=== PATIENT | female | born 1970 | race Caucasian/White ===

== ENCOUNTER 2020-10-10 14:16 | Outpatient (CLI) | payer BC, SELFPAY ==
--- NOTE | ~2020-10-10 | US_ITS ---
EXAMINATION: US venous doppler LE DATE: 10/10/2020 14:41 INDICATION: Right lower limb pain TECHNIQUE: Grayscale ultrasound images without and with compression and Doppler ultrasound images of the right lower extremity veins were obtained. COMPARISON: None. FINDINGS: The visualized portions of right common femoral vein, profunda (deep) femoral vein, femoral vein, pop liteal vein, peroneal trunk, posterior tibial veins, peroneal veins, gastrocnemius vein and greater s aphenous vein outflow are patent. IMPRESSION: 1. No deep venous thrombosis in the right lower limb. Reviewed, dictated and finalized at location A. [employer]ER
== END 2020-10-10 14:17 | disposition home or self-care (01) ==
PROVIDERS: Visit Provider Obstetrics & Gynecology
DX: M79.661 Pain in right lower leg (principal)
CPT/HCPCS: 93971

== ENCOUNTER 2020-12-07 14:24 | Outpatient (CLI) | payer BC, SELFPAY ==
--- NOTE | ~2020-12-07 | MM_ITS ---
EXAMINATION: MM screening [facility] BI w [place] HISTORY: Screening mammogram TECHNIQUE: Craniocaudal and mediolateral oblique 3-D tomosynthesis images were obtained and synthetic 2-D images were generated. CAD analysis was submitted and interpreted. COMPARISON: 12/26/2015, 07/07/2012, 04/04/2011 BREAST PARENCHYMAL COMPOSITION: The breasts are heterogeneously dense, which may obscure small masses . FINDINGS: There is no evidence of suspicious mass, calcification, or architectural distortion to sugg est malignancy in either breast. There has been no suspicious interval change. IMPRESSION: 1. No mammographic evidence of malignancy. 2. Recommend routine screening mammography in one year. BI-RADS Category 1: Negative Reviewed, dictated and finalized at location A.
== END 2020-12-07 14:25 | disposition home or self-care (01) ==
LOC: ANHIMG 14:28
PROVIDERS: PCP Obstetrics & Gynecology; Visit Provider Obstetrics & Gynecology
DX: Z12.31 Encounter for screening mammogram for malignant neoplasm of breast (principal)
CPT/HCPCS: 77063; 77067

== ENCOUNTER 2021-10-25 01:22 | Day surgery (SDC) | payer BC, SELFPAY ==
[2021-10-16 15:49] VITALS: BMI 36.9
[2021-10-25] MEDS: LACTATED RINGERS 1,000 ML 150 ML IV CONT (08:53)
--- NOTE | 2021-10-25 09:34 | PM.HPGS ---
History of Present Illness History of Present Illness Consent: Risks, benefits, and alternatives have been discussed and questions answered. Patient agrees to proceed with procedure. Chief complaint: neoplasm screening Narrative: Matilda Byers is a 51 year old female here for first screening colonoscopy Review of Systems Constitutional: Constitutional: Denies headache(s) and Denies weakness Eyes: Eyes: Denies blurry vision ENT: Reports Normal hearing present, Denies headache(s) and Denies neck pain Cardiovascular: Cardiovascular: Denies chest pain and Denies dyspnea Respiratory: Respiratory: Denies dyspnea Gastrointestinal: Gastrointestinal: Reports no additional gastrointestinal complaints Genitourinary: Genitourinary: Denies dysuria Musculoskeletal: Musculoskeletal: Denies neck pain Integumentary/Breasts: Skin/Breast: Denies dry skin Neurologic: Reports Normal hearing present, Denies headache(s) and Denies weakness Psychiatric: Psychiatric: Denies anxiety Endocrine: Endocrine: Denies change in body appearance Hematologic/Lymphatic: Hematologic/Lymphatic: Denies easy bleeding Allergic/Immunologic: Allergic/Immunologic: Denies urticaria PMFSH Past Medical History Medical History (Updated 10/25/21 @ 09:34 by Steven Law MD) Colon cancer screening Social History Social History Smoking packs per day: 0.25 Smoking cigarettes per day: 5.0 Smoking status: Former smoker Alcohol intake: current Drinks per week: 12 Substance use type: does not use Living arrangements: with family Spiritual care concerns: No Meds Home Medications and Allergies Home Medications Medication Instructions Recorded Confirmed Type No Home Medications 10/16/21 10/16/21 History Allergies Allergy/AdvReac Type Severity Reaction Status Date / Time No Known Allergies Allergy Mild Verified 10/25/21 08:57 Exam Const: General: comfortable and no acute distress HENMT: General nose exam: Normal nares present Eyes: General: appearance normal, both eyes and all related structures Neck: Neck: no JVD Resp: Auscultation: clear to auscultation bilaterally Cardio: Rate: regular rate Rhythm: regular rhythm GI: Inspection: non-distended GI Palp: Yes Soft to palpation Skin: General skin exam: normal color Neuro: General: gait normal Speech: normal speech Extrem: General: normal to inspection Psych: Mental Status: mental status grossly normal Assessment and Plan Assessment and plan (1) Colon cancer screening: Code(s): Z12.11 - Encounter for screening for malignant neoplasm of colon Status: Acute Assessment and Plan: colonoscopy
--- NOTE | 2021-10-25 09:51 | P.PNAN_ITS ---
Anes - Initial Pre Proc Eval Procedure: Operation Date: 10/25/21 09:45 Proposed Procedures p Screening Colonoscopy - Steven Law MD Date/Time: 10/25/21 09:51 Surgeon: Steven Law MD Pre Op Diagnosis: neoplasm screening Patient Data Age: 51 Gender: F Height: 1.75 m Weight: 115 kg Allergies Allergy/AdvReac Type Severity Reaction Status Date / Time No Known Allergies Allergy Mild Verified 10/25/21 08:57 Home Medications Medication Instructions Recorded Confirmed Type No Home Medications 10/16/21 10/16/21 History Patient hx anesthesia problems: none Family hx anesthesia problems: none Results Review: All pre-operative results and documents have been reviewed as part of the pre-operative evaluation. [facility] Past Medical History Medical History (Updated 10/25/21 @ 09:34 by Steven Law MD) Colon cancer screening Social History Social History Smoking packs per day: 0.25 Smoking cigarettes per day: 5.0 Smoking status: Former smoker Alcohol intake: current Drinks per week: 12 Substance use type: does not use Living arrangements: with family Spiritual care concerns: No Anes - Eval Final PreProcedure Day of Procedure 10/25/21 09:51 Patient weight: obese Heart: regular rate and rhythm Lungs: clear to auscultation Airway: Mallampati scale Neurological: alert and oriented Last oral intake: >/= 8 hours ASA classification: II Emergent: no Anesthetic plan: proceed Anesthesia type and monitoring: general GIVS and standard monitoring Results Review: All pre-operative results and documents have been reviewed as part of the pre-operative evaluation. Informed Consent: The patient's anesthetic plan and its attendant risks and benefits were discussed with the patient/family/POA. Questions were solicited and answers provided to the satisfaction of the patient/family/POA.
[2021-10-25 09:55] VITALS: BP 118/80; PULSE 83; RESP 16; O2SAT 100
[2021-10-25 10:05] VITALS: BP 119/78; PULSE 78; RESP 14; O2SAT 100
[2021-10-25 10:15] VITALS: BP 124/85; PULSE 77; RESP 15; O2SAT 100
== END 2021-10-25 10:30 | disposition home or self-care (01) ==
PROVIDERS: Visit Provider Internal Medicine Gastroenterology
PROC: 0DJD8ZZ Inspection of Lower Intestinal Tract, Via Natural or Artificial Opening Endoscopic (ICD-10-PCS; CPT 45378; principal; 2021-10-25 09:45)
DX: Z12.11 Encounter for screening for malignant neoplasm of colon (principal); K57.30 Diverticulosis of large intestine without perforation or abscess without bleeding; Z87.891 Personal history of nicotine dependence
CPT/HCPCS: 45378; J2704; J7120

== ENCOUNTER 2021-12-11 08:29 | Outpatient (CLI) | payer BC, SELFPAY ==
--- NOTE | ~2021-12-11 | MM_ITS ---
EXAMINATION: MM screening [facility] BI w [place] HISTORY: Screening TECHNIQUE: Craniocaudal and mediolateral oblique 3-D tomosynthesis images were obtained and synthetic 2-D images were generated. CAD analysis was submitted and interpreted. COMPARISON: Comparison to multiple prior studies sequentially, with oldest reviewed study dated 06/18. BREAST PARENCHYMAL COMPOSITION: The breasts are heterogeneously dense, which may obscure small masses . FINDINGS: There is no evidence of suspicious mass, calcification, or architectural distortion to sugg est malignancy in either breast. There has been no suspicious interval change. IMPRESSION: 1. No mammographic evidence of malignancy. 2. Recommend routine screening mammography in one year. BI-RADS Category 1: Negative Reviewed, dictated and finalized at location A.
== END 2021-12-11 08:30 | disposition home or self-care (01) ==
LOC: ANHIMG 08:30
PROVIDERS: Visit Provider Obstetrics & Gynecology
DX: Z12.31 Encounter for screening mammogram for malignant neoplasm of breast (principal)
CPT/HCPCS: 77063; 77067

== ENCOUNTER 2022-02-10 12:56 | Emergency (ER) | payer BC, SELFPAY ==
[2022-02-10 13:06] VITALS: BP 139/78; PULSE 88; RESP 16; TEMP 36.4; O2SAT 100
--- NOTE | 2022-02-10 13:33 | ED.WOUNDLAC ---
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 She has cleaned the area and dressed it prior to arrival. She currently rates her pain 3/10. She is up-to-date on her tetanus vaccine. She does report some slight tingling to the tip of the finger, but denies numbness. She has not tried any [id number] medication for symptoms prior to arrival. Related Data Allergies Allergy/AdvReac Type Severity Reaction Status Date / Time No Known Allergies Allergy Mild Verified 02/10/22 13:25 Review of Systems Review of Systems: CONSTITUTIONAL: Denies body aches, fever, chills, or sweats. EYES: Denies visual changes, redness, or discharge. ENT: Denies rhinorrhea, congestion, sore throat, or otalgia. CARDIOVASCULAR: Denies chest pain, palpitations, or edema. RESPIRATORY: Denies cough or dyspnea. GASTROINTESTINAL: Denies abdominal pain, nausea, vomiting, or diarrhea. GENITOURINARY: Denies dysuria or hematuria. SKIN: Denies rash, itching. + Laceration to left second finger MUSCULOSKELETAL: Denies back pain, joint pain, or myalgia. NEUROLOGIC: Denies headache, numbness, tingling, or weakness. PSYCH: Denies depression or anxiety. [facility] Past Medical History Medical History (Reviewed 02/10/22 @ 13:36 by Sandy Valenzuela, [facility] [place], ) Colon cancer screening Social History Social History (Reviewed 02/10/22 @ 13:36 by Sandy Valenzuela, [facility] [place], ) Smoking packs per day: 0.25 Smoking cigarettes per day: 5.0 Smoking status: Former smoker Alcohol intake: current Drinks per week: 12 Substance use type: does not use Spiritual care concerns: No Comments At time of signature, I have reviewed and agree with nursing past medical, surgical, social and family history unless otherwise noted. Please see nursing chart for further information. There is no relevant family history pertinent to the presenting complaint Exam Narrative: GENERAL: Well-appearing, well-nourished, and in no acute distress. HEAD: Normocephalic, atraumatic. EYES: EOMI. No redness or drainage. Conjunctivae normal. ENT: Mucous membranes pink and moist. NECK: Normal AROM. CHEST: No respiratory distress. EXTREMITIES: Normal range of motion. No edema. SKIN: Warm, dry, no rash. Capillary refill normal. Normal skin turgor. 2 cm x 4 mm gaping laceration to the pad of the left second finger. Mild edema noted. Scant erythema surrounding the laceration. Distal sensation is intact. Full AROM of the finger. Some tenderness surrounding the laceration, but no proximal tenderness noted. No bony tenderness noted. Capillary refill normal. NEURO: No focal deficits. Alert and oriented x3. Gait steady. PSYCH: Normal affect. No signs of depression or anxiety. Course Course Emergency Course: Will place patient on antibiotics for anaerobic anaerobic coverage and instruct her to follow-up with hand specialist. Level of Care: Express Care Visit Vital Signs Vital signs: Vital Signs Temperature 97.5 F L 02/10/22 13:06 Pulse Rate 88 02/10/22 13:06 Respiratory Rate 16 02/10/22 13:06 Blood Pressure 139/78 02/10/22 13:06 Pulse Oximetry 100 02/10/22 13:06 Oxygen Delivery Room Air 02/10/22 13:06 Temperature 97.5 F L 02/10/22 13:06 Pulse Rate 88 02/10/22 13:06 Respiratory Rate 16 02/10/22 13:06 Blood Pressure 139/78 02/10/22 13:06 Pulse Oximetry 100 02/10/22 13:06 Oxygen Delivery Room Air 02/10/22 13:06 Reviewed. Pt has been instructed to follow up with her PCP regarding her elevated blood pressure today. MDM - Wound/Laceration Differential Diagnosis Differen
== END 2022-02-10 13:48 | disposition home or self-care (01) ==
PROVIDERS: Emergency Provider Nurse Practitioner
DX: S61.211A Laceration without foreign body of left index finger without damage to nail, initial encounter (principal); X58.XXXA Exposure to other specified factors, initial encounter; Z87.891 Personal history of nicotine dependence
CPT/HCPCS: 99213; G0463

== ENCOUNTER 2022-07-01 12:08 | Emergency (ER) | payer BC, SELFPAY ==
--- NOTE | ~2022-07-01 | US_ITS ---
EXAMINATION: US venous doppler [facility] DATE: 07/01/2022 13:00 INDICATION: Left lower limb pain. TECHNIQUE: Grayscale ultrasound images without and with compression and Doppler ultrasound images of the left lower extremity veins were obtained. COMPARISON: None. FINDINGS: The visualized portions of left common femoral vein, profunda (deep) femoral vein, femoral vein, popl iteal vein, peroneal veins, posterior tibial veins, and greater saphenous vein outflow are patent. IMPRESSION: 1. No deep venous thrombosis. Reviewed, dictated and finalized at location A. RENOVATOR
[2022-07-01 12:22] VITALS: BP 138/109; PULSE 82; RESP 16; TEMP 36.5; O2SAT 98
--- NOTE | 2022-07-01 13:31 | ED.EXTPRO ---
HPI - Extremity Problem General Chief complaint: Extremity Problem,Nontraumatic Stated complaint: L leg pain behind the knee radiating to calf x 2w Time Seen by Provider: 07/01/22 13:01 History of Present Illness HPI Narrative: Patient is a 52-year-old female presenting with left knee pain. Patient states that she has had intermittent pain in her left knee for the last several weeks. States that it is behind her knee and sometimes radiates to the top of her calf. States that she twisted her knee over the summer and this pain is in a similar distribution as that time. States that she mentioned her symptoms to some friends and they told her to come in to make sure it was not a blood clot. She denies any erythema or significant swelling. Denies recent trauma. No fevers or chills. Still ambulatory. Denies headaches, chest pain, shortness of breath, abdominal pain, nausea or vomiting, diarrhea. Related Data Allergies Allergy/AdvReac Type Severity Reaction Status Date / Time No Known Allergies Allergy Mild Verified 07/01/22 12:09 Review of Systems Review of Systems: All systems reviewed & are unremarkable except as noted in HPI and below PMFSH Past Medical History Medical History Colon cancer screening Social History Social History Smoking packs per day: 0.25 Smoking cigarettes per day: 5.0 Smoking status: Former smoker Alcohol intake: current Drinks per week: 12 Substance use type: does not use Spiritual care concerns: No Exam Narrative: GENERAL: Well-appearing, well-nourished, and in no acute distress. HEAD: Normocephalic, atraumatic. EYES: PERRLA and EOMI. ENT: Nares clear, no rhinorrhea or epistaxis. Mucous membranes moist. NECK: Supple. CHEST: Clear to auscultation. No respiratory distress. HEART: Regular rate and rhythm. No murmur heard. Normal peripheral pulses. ABDOMEN: Soft, nontender, nondistended, normal active bowel sounds. EXTREMITIES: Normal range of motion. No edema. No erythema noted to either lower extremity, left knee without swelling or decreased ROM, distal pulses 2+ SKIN: Warm, dry, no rash. NEURO: No focal deficits. Alert and oriented x3. PSYCH: Normal mood and affect. Course Vital Signs Vital signs: Vital Signs Temperature 97.7 F 07/01/22 12:22 Pulse Rate 82 07/01/22 12:22 Respiratory Rate 16 07/01/22 12:22 Blood Pressure 138/109 H 07/01/22 12:22 Pulse Oximetry 98 07/01/22 12:22 Oxygen Delivery Room Air 07/01/22 12:22 Temperature 97.7 F 07/01/22 12:22 Pulse Rate 82 07/01/22 12:22 Respiratory Rate 16 07/01/22 12:22 Blood Pressure 138/109 H 07/01/22 12:22 Pulse Oximetry 98 07/01/22 12:22 Oxygen Delivery Room Air 07/01/22 12:22 MDM - Extremity (Nontraumatic) MDM Narrative Medical decision making narrative: Patient is a 52-year-old female presenting with left knee pain for several weeks. Patient is hypertensive, otherwise vitals are within normal limits. Exam is remarkable for the above. Doppler of her lower extremity was obtained which shows no evidence of DVT. Do not feel further imaging is warranted at this time. She denies any recent trauma. Discussed appropriate supportive care and primary care follow-up. Appropriate return precautions given. Patient voiced understanding and is agreeable with plan. Discharged in stable condition. Critical Care Time Critical Care Time Critical Care Time: No Discharge Plan Discharge Clinical Impression: Left leg pain Patient Disposition: Home, Self-Care Condition: Stable Instructions: Antibiotic Form, Leg Sprain (ED) Additional Instructions: Please alternate between Tylenol and ibuprofen for pain control. Please keep the leg elevated and apply ice as needed. Please follow-up closely with primary care. If you develop worsening swelling or pain or redness, y
== END 2022-07-01 14:20 | disposition home or self-care (01) ==
PROVIDERS: Emergency Provider Emergency Medicine
DX: M79.662 Pain in left lower leg (principal)
CPT/HCPCS: 93971; 99284

== ENCOUNTER → 2022-10-03 13:50 | Outpatient (CLI) | payer BC, SELFPAY ==
--- NOTE | ~2022-10-03 | XR_ITS ---
XR knee LT 2V DATE: 10/03/2022 14:03 INDICATION: Posterior medial left knee pain for 6+ months. No injury. TECHNIQUE: Standing AP and lateral views COMPARISON: None FINDINGS: No fracture, dislocation, joint effusion, radiopaque intra-articular loose body or chondroc alcinosis is evident. Joint spaces appear relatively preserved. No periosteal reaction or bone destru ction. IMPRESSION: No significant abnormality Reviewed, dictated and finalized at location A. ERY CHECKER IMPRESSION: No significant abnormality
== END ==
PROVIDERS: PCP Family Medicine; Visit Provider Physician Assistant Medical
DX: M25.562 Pain in left knee (principal)
CPT/HCPCS: 73560

== ENCOUNTER → 2022-11-14 10:36 | Outpatient (CLI) | payer BC, SELFPAY ==
--- NOTE | ~2022-11-14 | MR_ITS ---
MRI of the left knee Clinical history: Medial meniscal tear Technique: Coronal proton density and proton density-weighted images, sagittal proton-density and T2 fat-sat images, and axial proton-density fat-saturated images were acquired. Findings: Anterior and posterior cruciate ligaments are intact. Probable small ganglion cyst of the A CL. Medial collateral ligament and the lateral collateral ligament complex are intact. Popliteus tend on is intact. There is horizontal tear of the posterior horn and body of the medial meniscus. Lateral meniscus is i ntact. Articular cartilage is well preserved throughout the knee, aside from a focal high-grade chondral les ion along lateral patellar facet. Bone marrow signals are unremarkable. Extensor mechanism is intact. Minimal joint effusion present. [id number] Vazquez's cyst present. Impression: Horizontal tear of the posterior horn and body of medial meniscus. Focal high-grade chondral lesion at the lateral patellar facet. Small to moderate Vazquez's cyst. Probable small intraligamentous ganglion cyst of the ACL. Reviewed, dictated and finalized at location . Impression: Horizontal tear of the posterior horn and body of medial meniscus. Focal high-grade chondral lesion at the lateral patellar facet. Small to moderate Vazquez's cyst. Probable small intraligamentous ganglion cyst of the ACL.
== END ==
PROVIDERS: PCP Physician Assistant Medical; Visit Provider Orthopaedic Surgery
DX: S83.242A Other tear of medial meniscus, current injury, left knee, initial encounter (principal); X58.XXXA Exposure to other specified factors, initial encounter; M71.22 Synovial cyst of popliteal space [Baker], left knee
CPT/HCPCS: 73721

== ENCOUNTER 2022-12-10 12:10 | Outpatient (CLI) | payer BC, SELFPAY ==
--- NOTE | 2022-12-10 12:22 | ECG_ITS ---
Measurements Intervals [place] Rate: 78 P: 39 RI: 166 QRS: -17 QRSD: 76 T: -10 QT: 362 QTc: 413 Interpretive Statements SINUS RHYTHM LOW QRS VOLTAGE IN PRECORDIAL LEADS [QRS DEFLECTION < 1.0 mV IN CHEST LEADS] PATTERN CONSISTENT WITH PULMONARY DISEASE NONSPECIFIC T-WAVE ABNORMALITY ABNORMAL ECG Electronically Signed On 12-10-2022 13:38:39 CDT by Yair Mckeon M.D.
== END 2022-12-10 12:11 | disposition home or self-care (01) ==
LOC: ANHSURGERY 12:13
PROVIDERS: PCP Family Medicine; Visit Provider Orthopaedic Surgery
DX: I10 Essential (primary) hypertension (principal); R94.31 Abnormal electrocardiogram [ECG] [EKG]
CPT/HCPCS: 93005

== ENCOUNTER 2022-12-16 02:07 | Day surgery (SDC) | payer BC, SELFPAY ==
[2022-12-09 11:06] VITALS: BMI 36.9
--- NOTE | 2022-12-09 11:11 | PC.NURSE ---
Report to the Outpatient Waiting Room, entrance under the green pavilion located off [facility], at time 11:30 on date 12/16/22. Planned Procedure Time: 1:30. Time changes happen often and if your time is changed the preop area will call you the afternoon before. - You and your visitor will be asked to self-screen and do not enter if you have any COVID symptoms. - A mask is optional within the hospital at this time. Patients may have clear liquids (water, carbonated beverages, clear teas, apple juice) until 3 hours prior to surgery (10:30) with a maximum of 20 ounces. - No food from midnight until time of surgery Take the following medications with a SIP of water the morning of surgery: AMLODIPINE DO NOT STOP ANY OF YOUR OTHER PRESCRIPTION MEDICATIONS PRIOR TO SURGERY EXCEPT THE FOLLOWING Medications to discontinue per physician: N/A Date to take last dose: N/A Please no make-up, nail argentine, hairspray, perfume, deodorant, or body powder the day of surgery. No jewelry (including any body piercings) or valuables the day of surgery, leave them at home. Please take a shower or bath the night before, or the morning of, surgery with an antibacterial soap. Wear comfortable, loose fitting clothing. - Jewelry must be removed prior to entering the operating room. Rings and piercings that are not removed may be cut off. - The hospital will not accept responsibility for valuables. - Please leave all valuables, including medications, at home the day of surgery. If you are going home after surgery, a licensed tractor trailer driver must drive you home. - NO public transportation without another adult if you receive anesthesia. - We recommend that an adult stay with you for 24 hours following discharge. - We also recommend that you do not drive, make important decision, drink alcoholic beverages, or take any drugs that were not prescribed by your health care provider for at least 24 hours after your discharge time. Follow any additional instructions given to you from your surgeon. If you or anyone in your household have experienced Covid symptoms in the past week, please notify your surgeon or the nurse liaison at the phone number below for possible testing. Telephone instructions given to PT - ADNE SHIELDS and asked if any additional questions and then verbalized understanding. Patient advised to call surgeon office or pre surgery nurse liaison [phone] if any additional questions.
[2022-12-16] VITALS (10 sets, daily range): BP systolic 122–142; BP diastolic 67–91; PULSE 61–86; RESP 13–16; TEMP 36.8–36.9; O2SAT 94–100
--- NOTE | 2022-12-16 07:14 | WPDHPUPDATE1 ---
History and Physical Update Update Date/Time: 12/16/22 07:14 History and Physical has been reviewed, including an updated exam of the patient. There are NO changes in the patient's condition. Risks, benefits, and alternatives have been discussed and questions answered. Patient agrees to proceed with procedure.
[2022-12-16] MEDS: CELECOXIB 200 MG CAPSULE PO (11:42)
[2022-12-16] MEDS: ACETAMINOPHEN 500 MG TABLET 1000 MG PO (11:42)
[2022-12-16] MEDS: LACTATED RINGERS 1,000 ML 30 ML IV CONT (12:00)
--- NOTE | 2022-12-16 12:31 | WPDANESEPPF ---
Anes - Initial Pre Proc Eval Procedure: Operation Date: 12/16/22 13:30 Proposed Procedures p Left Knee Arthroscopy - Roque Neal MD Date/Time: 12/16/22 12:31 Surgeon: Roque Neal MD Pre Op Diagnosis: left medial meniscus tear Patient Data Age: 52 Gender: F Height: 1.75 m Weight: 113.6 kg Last Vital Signs Temp 36.9 C 12/16/22 11:52 Pulse 81 12/16/22 11:52 Resp 16 12/16/22 11:52 BP 126/79 12/16/22 11:52 Pulse Ox 98 12/16/22 11:52 O2 Del Method Room Air 12/16/22 11:52 Allergies Allergy/AdvReac Type Severity Reaction Status Date / Time No Known Allergies Allergy Mild Verified 12/16/22 11:40 Home Medications Medication Instructions Recorded Confirmed Type cetirizine 10 mg tablet (Zyrtec) 10 mg PO DAILY PRN Allergy Symptoms 09/30/22 12/10/22 History fluticasone propionate 50 1 spray intranasal DAILY 09/30/22 12/10/22 History mcg/actuation nasal spray,suspension (Flonase Allergy Relief) semaglutide (weight loss) 0.5 0.5 mg subcut WEEKLY 09/30/22 12/10/22 History mg/0.5 mL subcutaneous pen injector (Wegovy) amlodipine 2.5 mg tablet 2.5 mg PO DAILY #90 tabs 11/20/22 12/10/22 Rx chlorhexidine gluconate 4 % 1 applic topical DAILY #237 mL 12/09/22 12/10/22 Rx topical liquid (Hibiclens) levonorgestrel 17.5 mcg/24 hrs 1 device intrauterine ONCE 12/10/22 12/10/22 History (5yrs) 19.5mg intrauterine device (Kyleena) Patient hx anesthesia problems: none Family hx anesthesia problems: none Results Review: All pre-operative results and documents have been reviewed as part of the pre-operative evaluation. [facility] Past Medical History Medical History Colon cancer screening Seasonal allergies Surgical History Surgical History History of tonsillectomy and adenoidectomy [place] teeth extracted Family History Family History Grandparent Diabetes mellitus Grandparent Diabetes mellitus Father Lung cancer Mother Esophageal cancer Sibling Uterine fibroid Daughter Anxiety Son Seasonal allergies Asthma Social History Social History Smoking packs per day: 0.25 Smoking cigarettes per day: 5.0 Years smoked: 20 Smoking pack-years: 5.00 Smoking status: Former smoker Tobacco type: cigarettes Second hand tobacco smoke exposure: Yes Smoking end date: 08/17/19 Alcohol intake: current Drinks per week: 12 Substance use: current Substance use type: marijuana Lack of Transportation: No Lack of Food: Never True Current Housing: I Have Housing Concerned About Future Housing: No Difficulty Paying Gas/Electric Bills: No Difficulty Paying for Meds: No Currently Unemployed: No Education: Associate Degree Difficulty w/ Childcare or Family Care: No Living arrangements: with family Additional living arrangements comments: CHILDREN Spiritual care concerns: No Anes - Eval Final PreProcedure Day of Procedure 12/16/22 12:31 Patient weight: obese Heart: regular rate and rhythm Lungs: clear to auscultation Airway: Mallampati scale class II Neurological: alert and oriented Last oral intake: >/= 8 hours ASA classification: III Emergent: no Anesthetic plan: proceed Anesthesia type and monitoring: general LMA and standard monitoring Results Review: All pre-operative results and documents have been reviewed as part of the pre-operative evaluation. Informed Consent: The patient's anesthetic plan and its attendant risks and benefits were discussed with the patient/family/POA. Questions were solicited and answers provided to the satisfaction of the patient/family/POA.
[2022-12-16] MEDS: SCOPOLAMINE 1.5 MG PATCH TRANSDERM (13:25)
[2022-12-16] MEDS: ceFAZolin 2 GM/D5W 50 ML 2 GM/50 ML BAG IVPB (13:31)
[2022-12-16] MEDS: BUPivacaine HCL 0.5% PF 30 ML VIAL INFILTRATE (14:06)
[2022-12-16] MEDS: KETOROLAC 15 MG/ML VIAL (*BKC) IV PUSH (14:20)
--- NOTE | 2022-12-16 15:11 | W.PM.PROC2 ---
Procedure Note - Detailed Date of Procedure 12/16/22 Pre-op Diagnosis left medial meniscus tear Post-op Diagnosis Same Procedure Performed LEFT KNEE SCOPE Surgeon Roque Neal MD Anesthesia General Description of Procedure PATIENT WAS TAKEN TO THE OR. THE LEFT LEG WAS PREPPED AND DRAPED STERILE. TROCARS WERE PLACED IN THE USUAL FASHION. CAMERA WAS INTRODUCED. THERE WAS MILD CHONDROMALACIA TO THE PATELLA FEMORAL JOINT. THERE WAS A LARGE PLICA IN THE SUPERIOR MEDIAL COMPARTMENT. THE MEDIAL COMPARTMENT SHOWED MINIMAL CHONDROMALACIA TO THE MEDIAL FEMORAL CONDYLE AND PLATEAU. THERE WAS A COMPLEX MEDIAL MENISCUS TEAR IN THE POSTERIOR HORN AND IT EXTENDED IN TO THE ROOT. THE MENISCUS TEAR WAS DEBRIDED WITH A SHAVER AND A BITER DOWN TO A SMOOTH BASE. THE ACL WAS INTACT. THE LATERAL MENISCUS WAS NOT TORN. THE LATERAL COMPARTMENT HAD MILD CHONDROMALACIA AT THE LATERAL PLATEAU. THE PATELLO FEMORAL JOINT UNDERWENT CHONDROPLASTY OVER THE PATELLA AND TROCHLEA. SYNOVECTOMY WITH PLICA REMOVAL WAS PREFORMED IN THE SUPERIOR MEDIAL COMPARTMENT. THE WOUNDS WERE APPROXIMATED WITH 4.0 NYLON. STERILE DRESSING WAS APPLIED. PATIENT WAS EXTUBATED. Estimated Blood Loss 5 Complications No immediate complications Condition Stable Disposition PACU
[2022-12-16] MEDS: fentaNYL CITRATE INJ (*CRX) 100 MCG/2 ML VIAL 25 MCG IV PUSH ×2 (15:12→15:14)
[2022-12-16] MEDS: oxyCODONE HCL (*CRX) 5 MG TAB IR PO (15:50)
== END 2022-12-16 16:40 | disposition home or self-care (01) ==
PROVIDERS: PCP Family Medicine; Visit Provider Orthopaedic Surgery
PROC: (CPT 29870; principal; 2022-12-16 13:30)
DX: M23.322 Other meniscus derangements, posterior horn of medial meniscus, left knee (principal); M67.52 Plica syndrome, left knee; M22.42 Chondromalacia patellae, left knee; Z87.891 Personal history of nicotine dependence; F12.90 Cannabis use, unspecified, uncomplicated; E66.9 Obesity, unspecified; Z68.37 Body mass index [BMI] 37.0-37.9, adult
CPT/HCPCS: 29881; A9270; J0690; J1100; J1885; J2250; J2405; J2704; J3010; J7120

== ENCOUNTER 2023-01-07 08:11 | Outpatient (CLI) | payer BC, SELFPAY ==
--- NOTE | ~2023-01-07 | MM_ITS ---
EXAMINATION: MM screening [place] BI w [place] HISTORY: Screening mammogram TECHNIQUE: Craniocaudal and mediolateral oblique 3-D tomosynthesis images were obtained and synthetic 2-D images were generated. CAD analysis was submitted and interpreted. COMPARISON: 12/11/2021, 12/07/2020, 12/26/2015 BREAST PARENCHYMAL COMPOSITION: The breasts are heterogeneously dense, which may obscure small masses . FINDINGS: 2 No suspicious mass, calcification, or architectural distortion are identified in either b reast to suggest malignancy. There has been no suspicious interval change. IMPRESSION: 1. No mammographic evidence of malignancy. 2. Recommend routine screening mammography in one year. BI-RADS Category 1: Negative Reviewed, dictated and finalized at location A.
== END 2023-01-07 08:12 | disposition home or self-care (01) ==
LOC: ANHIMG 08:14
PROVIDERS: PCP Family Medicine; Visit Provider Obstetrics & Gynecology
DX: Z12.31 Encounter for screening mammogram for malignant neoplasm of breast (principal)
CPT/HCPCS: 77063; 77067

== ENCOUNTER 2024-10-12 16:11 | Emergency (ER) | payer BC, SELFPAY ==
[2024-10-12 16:15] VITALS: BP 143/81; PULSE 92; RESP 16; TEMP 36.7; O2SAT 99
--- NOTE | 2024-10-12 16:21 | ED_ITS ---
HPI - URI/Sore Throat General Chief Complaint: Upper Respiratory Infection Stated Complaint: cough,drainage Time Seen by Provider: 10/12/24 16:21 Source: patient Mode of arrival: ambulatory Limitations: no limitations History of Present Illness HPI Narrative: Matilda is a 54-year-old female patient presenting to the clinic today with complaints of cough, sinus pressure, nasal drainage, and congestion x1 month. Coughing up yellow phlegm. She denies any fevers, chills, body aches. MD elicited complaint: cough, nasal congestion and sinus pain Related Data Home Medications ?Medication ?Instructions ?Recorded ?Confirmed ?Last Taken ?Type fluticasone propionate 50 1 spray intranasal DAILY 09/30/22 11/04/23 Unknown History mcg/actuation nasal spray,suspension (Flonase Allergy Relief) levonorgestrel 17.5 mcg/24 hr (up 1 device intrauterine ONCE 12/10/22 11/04/23 Unknown History to 5 yrs) 19.5mg intrauterine device (Kyleena) Allergies Allergy/AdvReac Type Severity Reaction Status Date / Time No Known Allergies Allergy Mild Verified 11/04/23 15:38 Review of Systems Review of Systems: Pertinent positives per HPI. Patient denies any fever, chills, rash, headache, visual changes, dizziness, shortness of breath, chest pain, palpitations, nausea, vomiting, diarrhea, constipation, abdominal pain, or any urinary issues. [facility] Past Medical History Medical History Colon cancer screening Seasonal allergies Surgical History Surgical History H/O left knee surgery H/O sinus surgery History of tonsillectomy and adenoidectomy [place] teeth extracted Family History Family History Grandparent Diabetes mellitus Grandparent Diabetes mellitus Father Lung cancer Mother Esophageal cancer Sibling Uterine fibroid Daughter Anxiety Son Seasonal allergies Asthma Social History Social History Smoking packs per day: 0.25 Smoking cigarettes per day: 5.0 Years smoked: 20 Smoking pack-years: 5.00 Smoking status: Former smoker Tobacco type: cigarettes Second hand tobacco smoke exposure: Yes Smoking end date: 08/17/19 Alcohol intake: current Drinks per week: 12 Substance use: current Substance use type: marijuana Lack of Transportation: No Lack of Food: Never True Current Housing: I Have Housing Concerned About Future Housing: No Difficulty Paying Gas/Electric Bills: No Difficulty Paying for Meds: No Currently Unemployed: No Education: Associate Degree Difficulty w/ Childcare or Family Care: No Living arrangements: with family Additional living arrangements comments: CHILDREN Occupation/Education: occupation Spiritual care concerns: No Comments At the time of my signature, I reviewed and agree with the nursing past medical, surgical, social, and family history. There is no relevant family history pert inent to the patient complaint. Exam Narrative: General: Well-developed, well nourished, in no apparent distress Head: Normocephalic, atraumatic Eyes: Pupils equally round and reactive to light bilaterally, EOM intact, sclera and conjunctive clear, no discharge, lids normal Ears: TMs intact and congested, ear canals clear, no drainage, grossly hearing normal. Nose: Nares patent, yellow nasal discharge, moderate inflammation, maxillary and frontal sinus tenderness. Mouth: Oral pharynx without lesions or masses, good dentition, MMM. PND Neck: Supple, trachea midline, no enlargement of anterior or posterior cervical nodes, no thyroid masses or goiter palpable. Cardio: Regular rate and rhythm, s1 and s2 normal, no murmur appreciated. Resp: Clear to auscultation bilaterally, no rhonchi, rales, wheezing or rubs Course Course Emergency Course: Portions of this record may have been created with voice recognition software. Level of Care: Express Care Visit Vital Signs Vital signs: Vital Signs Temperature 36.7 C 10/12/24 16:15 Pulse Rate 92 10/12/24 16:15 Respiratory Rate 16 10/12/24 16:15 Blood Pressure 143/81 H 10/12/24 16:15 Pulse Oximetry 99 10/12/24 16:15 Oxygen Delivery Room Air 10/12/24 16:15 Temperature 36.7 C 10/12/24 16:15 Pulse Rate 92 10/12/24 16:15 Respiratory Rate 16 10/12/24 16:15 Blood Pressure 143/81 H 10/12/24 16:15 Pulse Oximetry 99 10/12/24 16:15 Oxygen Delivery Room Air 10/12/24 16:15 Vital signs reviewed MDM - URI/Sore Throat MDM Narrative Medical decision making narrative: At the time of visit patient is resting comfortably on the exam table. Patient appears to be nontoxic. Plan: I suspect patient has acute bacteria rhinosinusitis/bronchitis. Prescription for prednisone, Augmentin, and albuterol inhaler. Supportive measures were discussed with the patient and they voiced understanding discharge instructions and agrees to treatment plan. Return precautions reviewed Differential Diagnosis Differential diagnosis: Likely upper respiratory infection, otitis media, s inusitis, viral infection, bronchitis, influenza, pharyngitis and other (COVID) Discharge Plan Discharge Clinical Impression: Sinobronchitis Patient Disposition: Home, Self-Care Condition: Stable Instructions: Antibiotic Form, Acute Bronchitis (ED), Rhinosinusitis (ED) Additional Instructions: Take prescription medications only as prescribed-prednisone, albuterol inhaler, and Augmentin Increase fluids and stay well hydrated Tylenol/motrin for pain/fever Flonase and OTC antihistamines as directed Vicks vapor rub to open sinuses Sinus rinses for congestion Cepacol spray, cough drops, throat lozenges, warm tea with honey/lemon, gargle salt water to soothe throat BRAT diet for diarrhea Clear liquids x 24 hours then advance as tolerated for nausea/vomiting Go to the ED if you develop a worsening in your condition- high fever not controlled by Tylenol or Motrin, dehydration, weakness, lethargy, shortness of breath, or chest pain. Follow up with your PCP in 3-5 days if symptoms persist. Patient Language: Luxembourgish Prescriptions: New prednisone 20 mg tablet 40 mg PO DAILY 5 Days Qty: 10 0RF albuterol sulfate 90 mcg/actuation HFA aerosol inhaler 2 puff inhalation Q4-6H PRN (Reason: shortness of breath or wheezing) 30 Days Qty: 8.5 0RF amoxicillin-pot clavulanate 875-125 mg tablet 1 tablet PO Q12H 10 Days Qty: 20 0RF No Action fluticasone propionate [Flonase Allergy Relief] 50 mcg/actuation spray,suspension 1 spray intranasal DAILY Rx Instructions: administer into each nostril Kyleena 17.5 mcg/24 hrs (5 yrs) 19.5 mg intrauterine device 1 device intrauterine ONCE Rx Instructions: as a single dose amlodipine 2.5 mg tablet 2.5 mg PO DAILY Qty: 90 2RF Follow-up/Referrals: Shabana Clemons MD [Primary Care Provider] - Time of Disposition: 16:26 Quality NIHSS Nursing Documentation ED NIHSS nursing documentation: reviewed/agree
== END 2024-10-12 16:30 | disposition home or self-care (01) ==
PROVIDERS: Emergency Provider Nurse Practitioner Family; PCP Family Medicine
DX: J32.9 Chronic sinusitis, unspecified (principal); J40 Bronchitis, not specified as acute or chronic; Z87.891 Personal history of nicotine dependence; F12.90 Cannabis use, unspecified, uncomplicated
CPT/HCPCS: 99213; G0463

== ENCOUNTER 2024-12-06 07:49 | Outpatient (CLI) | payer BC, SELFPAY ==
--- NOTE | ~2024-12-06 | MR_ITS ---
MRI of the right knee Clinical history: Injury Technique: Coronal proton density and proton density-weighted images, sagittal proton-density and T2 fat-sat images, and axial proton-density fat-saturated images were acquired. Findings: Anterior and posterior cruciate ligaments are intact. Medial collateral ligament and the la teral collateral ligament complex are intact. Popliteus tendon is intact. Suspected focal vertical tear of the posterior horn of the medial meniscus. No lateral meniscal tear seen. Articular cartilage is well preserved throughout the knee. Bone marrow signals are unremarkable. Extensor mechanism is intact. Small joint effusion present. Small Vazquez cyst present. Impression: Suspected subtle small vertical tear of the posterior horn of the medial meniscus. Small joint effusion and small Vazquez's cyst. Reviewed, dictated and finalized at location . Impression: Suspected subtle small vertical tear of the posterior horn of the medial menisc us. Small joint effusion and small Vazquez's cyst.
== END 2024-12-06 07:50 | disposition home or self-care (01) ==
LOC: MICIMG 07:50
PROVIDERS: PCP Family Medicine; Visit Provider Orthopaedic Surgery
DX: S89.91XA Unspecified injury of right lower leg, initial encounter (principal); X58.XXXA Exposure to other specified factors, initial encounter; M25.461 Effusion, right knee; M71.21 Synovial cyst of popliteal space [Baker], right knee
CPT/HCPCS: 73721

== ENCOUNTER 2025-05-11 08:16 | Outpatient (CLI) | payer BC, SELFPAY ==
--- NOTE | ~2025-05-11 | MM_ITS ---
EXAMINATION: MM screening [place] BI w [place] HISTORY: Screening TECHNIQUE: Craniocaudal and mediolateral oblique 3-D tomosynthesis images were obtained and synthetic 2-D images were generated. CAD analysis was submitted and interpreted. COMPARISON: 12/11/2021 BREAST PARENCHYMAL COMPOSITION: The breasts are heterogeneously dense, which may obscure small masses. FINDINGS: There is no evidence of suspicious mass, calcification, or architectural distortion to suggest malignancy. There has been no suspicious interval change. IMPRESSION: 1. No mammographic evidence of malignancy. Recommend routine screening mammography in one year. BI-RADS Category 2: Benign finding(s) Reviewed, dictated and finalized at location Q. IMPRESSION: 1. No mammographic evidence of malignancy. Recommend routine screening mammogra phy in one year. BI-RADS Category 2: Benign finding(s)
--- OUTSIDE RECORDS SUMMARY | 2025-05-11 08:25 | XMS_ITS | Clinical Summary ---
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 Gender Identity Not on file Sexual Orientation Not on file Plan of Treatment Health Maintenance Due Date Last Done Comments Hepatitis C Virus (HCV) Screening 1971 TdaP Immunization 1971 Hepatitis B Immunization (1 of 3 - 19+ 3-dose series) 1990 Pap Smear 01/17/1992 Cervical Cancer Screening (CCS) 2001 HPV/Cotest 2001 Cologuard 01/17/2016 Colonoscopy 01/17/2016 Colorectal Cancer Screening 01/17/2016 Immunochemical Fecal Occult Blood 01/17/2016 Pneumococcal Immunization (5 0+ years) (1 of 1 - PCV) 2021 Zoster Immunization (1 of 2) 2021 Influenza Immunization (#1) 2025 SARS-COV-2 Immunization (2 - season) 2025 07/26/2021 Respiratory Syncytial Virus (RSV) Immunization (Adult) (1 - 1-dose 75+ series) 2046 Human Papillomavirus (HPV) Immunization Aged Out No longer eligible b ased on patient's age to complete this topic Meningococcal Immunization (ACWY) Aged Out No longer eligible based on patient's age to complete this topic Rotavirus Immunization Aged Out No lo nger eligible based on patient's age to complete this topic
== END 2025-05-11 08:17 | disposition home or self-care (01) ==
LOC: ANHFOHIMG 08:18
PROVIDERS: PCP Family Medicine; Visit Provider Obstetrics & Gynecology
DX: Z12.31 Encounter for screening mammogram for malignant neoplasm of breast (principal)
CPT/HCPCS: 77063; 77067